=== PATIENT | male | born 1950 | race Caucasian/White ===

== ENCOUNTER → 2019-12-30 11:27 | Outpatient (BNVA) | payer MEDICARE, SELFPAY | PROVIDERS: PCP Family Medicine; Visit Provider Nurse Practitioner Family | DX: M25.512 Pain in left shoulder (principal); M54.2 Cervicalgia; M45.9 Ankylosing spondylitis of unspecified sites in spine; M25.511 Pain in right shoulder; M89.8X1 Other specified disorders of bone, shoulder | CPT/HCPCS: 72040; 73000; 73030 ==